=== PATIENT | male | born 1955 | race Caucasian/White ===

== ENCOUNTER 2019-04-25 10:40 | Inpatient (IN) | payer OTHER ==
[~2019-04-25] VITALS: Ht 170.1 cm; Wt 78.5 kg
--- NOTE | ~2019-04-25 | POSTOPNOTE ---
[place], [place] POSTOPERATIVE PROGRESS NOTE NAME: DAKOTA REYES UNIT #: [id number] ROOM: 422 DOCTOR: URSZULA MISTRY MD BIRTHDATE: [birth year] DATE: 04/26/19 GI NOTE PREOPERATIVE DIAGNOSIS: BLOOD IN STOOL POSTOP LOWER GI PROC/FINDINGS: SEGMENTAL COLITIS LOWER GI PROCEDURE/SURGERY: COLONOSCOPY PLUS BIOPSY URSZULA MISTRY MD CM:POSTOPN [id number] URSZULA MISTRY MD 05/03/19 1011 AARON [email or web address]
--- NOTE | ~2019-04-25 | O ---
[place], [place] OPERATIVE NOTE NAME: DAKOTA REYES UNIT #: [id number] ROOM: 422 DOCTOR: FIDELIA PEREZ,URSZULA BIRTHDATE: [birth year] DOS: 04/26/2019 GASTROENDOSCOPIC REPORT INDICATIONS: The patient is a 63-year-old who has presented with chief complaint of blood in the stool, undergoing investigation. PROCEDURE: Today's procedure part of investigation is colonoscopy plus biopsy. PREMEDICATION: Propofol. SCOPE: Olympus forward-viewing colonoscope 10L video. REPORT: After putting the patient in left lateral position and application of lubricant to the scope, scope was introduced. Thereafter, under direct visualization, advanced through the length of colon without difficulty. Base of the cecum explored, appendiceal orifice identified, ileocecal valve was defined. Scope was gradually withdrawn from ascending, transverse, descending colon. At sigmoid colon a segment of the colon approximately 7 cm in width is consistent with colitis. This is circumferential in its diameter. Multiple biopsies obtained. Photographic series obtained. The patient extubated, tolerated the procedure well. IMPRESSION: Segmental colitis of sigmoid colon circumferential in its diameter width of about 7 cm as source of GI bleed and notice of blood in the stool. PLAN AND DISCUSSION: I am going to treat this with sulfasalazine 500 mg 2 tablets b.i.d., folic acid 1 mg daily. We will ask the patient to come back to see us in 2 weeks in the office after his records are available as far as the biopsy is concerned and clinical assessment at such time. URSZULA MISTRY MD CM:OPRECORD:OPERATIVE NOTE 04 26 URSZULA MISTRY MD 05/03/19 0952 interface
[2019-04-25 10:43] VITALS: BP 129/84
[2019-04-25 11:09] LABS: BASO % 0.6 % (0.0-1.0); EOS # 0.3 10*3/uL (0.0-0.4); EOS % 5.1 % (1.0-4.0); HEMATOCRIT 44.2 % (42.0-52.0); HEMOGLOBIN 14.6 g/dl (14.0-18.0); LYMPH # 2.1 10*3/uL (1.3-4.4); LYMPH % 31.8 % (27.0-41.0); MEAN CORPUSCULAR HGB 31.1 pg (27.0-31.0); MEAN PLATELET VOLUME 9.3 fl (9.6-12.3); MONO # 0.7 10*3/uL (0.1-1.0); MONO % 10.8 % (3.0-9.0); NEUT # 3.5 10*3/uL (2.3-7.9); NEUT % 51.6 % (47.0-73.0); PLATELET COUNT AUTOMATED 330 10*3/uL (130-400); RED CELL DISTRI WIDTH 12.5 % (0-14.5); WHITE BLOOD COUNT 6.7 10*3/uL (4.8-10.8)
[2019-04-25 11:25] LABS: ALBUMIN 3.7 gm/dl (3.1-4.5); ALKALINE PHOSPHATASE 81 U/L (45-117); BUN 15 mg/dl (7-24); CHLORIDE 107 mmol/L (98-107); CREATININE 1.04 mg/dL (0.70-1.30); POTASSIUM 4.1 mmol/L (3.5-5.1); SGOT/AST 19 IU/L (3-35); SGPT/ALT 25 U/L (12-78); SODIUM 139 mmol/L (136-145); TOTAL PROTEIN 7.6 gm/dL (6.4-8.2)
[2019-04-25 11:55] VITALS: BP 107/82
--- NOTE | 2019-04-25 12:19 | NUR ---
CCA 63, admitted to , under the services of SARAH Monte DO with a diagnosis of GI BLEED. Chief complaint is GI BLEED. Patient arrived via bed from ER. Monitor applied. Initial assessment completed. Vital signs taken and recorded. SARAH MONTE DO notified of admission to the unit. Orders received. See assessment for past medical history, medications and allergies. Patient and/or family oriented to unit. [address] visitation policy reviewed. Clothing/patient valuable form completed. MANPREET LILLY
[2019-04-25] MEDS ORDERED: ADVAIR 250/501 EA INH (12:22)
[2019-04-25 12:25] VITALS: BP 134/72
--- NOTE | 2019-04-25 12:28 | NUR ---
MEDS REVIEWED AND UPDATED PER POLICY.
--- NOTE | 2019-04-25 12:44 | NUR ---
DR GARRETT CONSULTED. ESTUARDO IN AM.
[2019-04-25 13:01] LABS: BILIRUBIN NEGATIVE (NEGATIVE); BLOOD NEGATIVE (NEGATIVE); CLARITY CLEAR (CLEAR); COLOR YELLOW (YELLOW); GLUCOSE NEGATIVE (NEGATIVE); KETONE NEGATIVE (NEGATIVE); LEUKO ESTERASE NEGATIVE (NEGATIVE); NITRITE NEGATIVE (NEGATIVE); PH 6.5 (5.0-9.0); UROBILINOGEN 0.2 E.U./dl (0.2-1.0)
[2019-04-25 13:09] LABS: RBC 0-2 rbc/hpf (0-2); WBC 0-2 wbc/hpf (0-5)
[2019-04-25 16:00] VITALS: BP 113/73
--- NOTE | 2019-04-25 17:27 | NUR ---
COLO PREP INITIATED AT THIS TIME PER ORDER.
--- NOTE | 2019-04-25 18:59 | NUR ---
NOTIFIED REGARDING PT C/O INDIGESTION. NEW ORDERS TO BE ENTERED PER PHYSICIAN.
--- NOTE | 2019-04-25 19:40 | NUR ---
PATIENT RESTING IN BED WITH AT BEDSIDE. NO NEEDS MADE. DENIES PAIN AT THIS TIME. BED IN LOWEST POSITION, CALL LIGHT IN REACH
[2019-04-25 20:00] VITALS: BP 132/85
--- NOTE | 2019-04-25 23:00 | NUR ---
24 HOUR CHART CHECK COMPLETE.
[2019-04-26] VITALS: BP 129/79
--- NOTE | 2019-04-26 05:52 | NUR ---
FLEETS ENEMA ADMINISTERED IN PREPARATION FOR COLONOSCOPY SCHEDULED FOR THIS MORNING. NO FLECKS NOTED. PT RUNNING CLEAR.
[2019-04-26 06:25] LABS: BASO # 0.1 10*3/uL (0.0-0.1); BASO % 0.5 % (0.0-1.0); EOS # 0.5 10*3/uL (0.0-0.4); EOS % 4.7 % (1.0-4.0); HEMOGLOBIN 15.7 g/dl (14.0-18.0); LYMPH # 2.5 10*3/uL (1.3-4.4); LYMPH % 23.9 % (27.0-41.0); MEAN CORPUSCULAR HGB 31.4 pg (27.0-31.0); MEAN CORPUSCULAR HGB CONC 32.7 g/dl (33.0-37.0); MEAN PLATELET VOLUME 9.4 fl (9.6-12.3); MONO # 0.9 10*3/uL (0.1-1.0); MONO % 9.1 % (3.0-9.0); NEUT # 6.4 10*3/uL (2.3-7.9); NEUT % 61.6 % (47.0-73.0); PLATELET COUNT AUTOMATED 388 10*3/uL (130-400); RED CELL DISTRI WIDTH 12.6 % (0-14.5); WHITE BLOOD COUNT 10.3 10*3/uL (4.8-10.8)
[2019-04-26 07:06] LABS: ALBUMIN 3.7 gm/dl (3.1-4.5); ALKALINE PHOSPHATASE 89 U/L (45-117); BUN 10 mg/dl (7-24); CHLORIDE 105 mmol/L (98-107); CHOLESTEROL 241 mg/dL (<200); CREATININE 1.12 mg/dL (0.70-1.30); HDL CHOLESTEROL 54 mg/dl (40-60); LDL CHOLESTEROL 151 mg/dL (9-159); PHOSPHOROUS 3.5 mg/dL (2.5-4.9); POTASSIUM 3.6 mmol/L (3.5-5.1); SGOT/AST 16 IU/L (3-35); SGPT/ALT 23 U/L (12-78); SODIUM 139 mmol/L (136-145); TOTAL PROTEIN 8.1 gm/dL (6.4-8.2); TRIGLYCERIDES 178 mg/dl (<150); VLDL CHOLESTEROL 36 mg/dL (6-40)
[2019-04-26 07:08] LABS: ACT PARTIAL THROMBO TIME 27.1 SECONDS (20.0-32.1); INTERNATIONAL NORM RATIO 0.9 (2.0-3.5)
--- NOTE | 2019-04-26 08:36 | NUR ---
Patient resting quietly with no c/o discomfort. Respirations easy and regular. Vital signs stable. No overt distress. CRISTINE GOSS R
--- NOTE | 2019-04-26 09:00 | NUR ---
[employer] Wireman in to talk to patient. Patient states lives at home with . There are few steps in the home. Physician: keyana lofton Pharmacy: [facility] Home health services: none Patient's level of ADLs: independent Patient has working utilities: all working DME: none Follow-up physician's appointment after d/c: will be made by hospitalist nurse director upon discharge Does patient want to access PORTAL?: no Discharge plan discussed with patient, present, he lives at home with , he states he is independent in adls and ambulation, works, drives, he denies any home needs at this time. NIRALI BRENNER
[2019-04-26 12:00] VITALS: BP 120/78
[2019-04-26 12:15] VITALS: BP 133/82
[2019-04-26 14:10] VITALS: BP 108/71
[2019-04-26 14:25] VITALS: BP 121/80
[2019-04-26 14:40] VITALS: BP 110/69
--- NOTE | 2019-04-26 14:55 | NUR ---
BACK FROM SURGERY. Patient resting quietly with no c/o discomfort. Respirations easy and regular. Vital signs stable. No overt distress. CRISTINE GOSS R
[2019-04-26] MEDS ORDERED: AZULFIDINE ENT500 MG PO (15:40)
[2019-04-26] MEDS ORDERED: NATURE'S BLEND F1 MG PO (15:40)
--- NOTE | 2019-04-26 16:30 | NUR ---
Discharge instructions reviewed with patient/family. Patient receptive and verbalizes understanding. Follow-up care arranged. Written instructions given to patient/family. MANPREET LILLY.
== END 2019-04-26 16:30 | disposition home or self-care (01) | DRG 392 ==
LOC: ED 10:40 → 4E 11:56 → EDHOLD 11:56 → 4E 12:00
PROVIDERS: Nurse Practitioner Family; Registered Nurse; ADMIT Internal Medicine
PROC: 0DBN8ZX Excision of Sigmoid Colon, Via Natural or Artificial Opening Endoscopic, Diagnostic (ICD-10-PCS; principal; 2019-04-26)
DX: K52.9 Noninfective gastroenteritis and colitis, unspecified (principal); E44.0 Moderate protein-calorie malnutrition; R10.32 Left lower quadrant pain; J44.9 Chronic obstructive pulmonary disease, unspecified; E78.00 Pure hypercholesterolemia, unspecified; Z87.442 Personal history of urinary calculi; Z82.49 Family history of ischemic heart disease and other diseases of the circulatory system; Z79.899 Other long term (current) drug therapy; Z68.27 Body mass index [BMI] 27.0-27.9, adult

== ENCOUNTER → 2022-11-23 | Outpatient (CLI) | payer MEDICARE ==
[~2022-11-23] MED LIST: ADVAIR 250/501 EA INH; AZULFIDINE ENT500 MG PO; CRANBERRY200 MG PO; MULTIVITAMINS1 EAC5 PO; NATURE'S BLEND F1 MG PO; PROAIR HFA8.5 GM INH; VITAMIN B1250 MCG PO
== END | disposition home or self-care (01) ==
LOC: US 01:49
PROVIDERS: ATTEND Family Medicine
DX: Z13.9 Encounter for screening, unspecified (principal)

== ENCOUNTER → 2024-02-28 | Outpatient (CLI) | payer MEDICARE | END | disposition home or self-care (01) | LOC: RESCLI 00:43 | PROVIDERS: ATTEND Internal Medicine | DX: J44.9 Chronic obstructive pulmonary disease, unspecified (principal); E78.5 Hyperlipidemia, unspecified; E56.9 Vitamin deficiency, unspecified; E53.8 Deficiency of other specified B group vitamins; F41.9 Anxiety disorder, unspecified; Z79.899 Other long term (current) drug therapy; Z82.49 Family history of ischemic heart disease and other diseases of the circulatory system; Z98.890 Other specified postprocedural states; Z87.891 Personal history of nicotine dependence ==

== ENCOUNTER → 2024-05-01 | Outpatient (CLI) | payer MEDICARE | END | disposition home or self-care (01) | LOC: US 01:50 | PROVIDERS: ATTEND Nurse Practitioner Primary Care | DX: R05.3 Chronic cough (principal); R59.1 Generalized enlarged lymph nodes; Z98.890 Other specified postprocedural states ==

== ENCOUNTER 2024-06-30 20:21 | Observation (INO) | payer MEDICARE ==
[~2024-06-30] VITALS: Ht 170 cm; Wt 77.0 kg
[2024-06-30 20:21] VITALS: BP 170/88
[2024-06-30 20:59] LABS: BASO % 0.4 % (0.0-1.0); EOS # 0.2 10*3/uL (0.0-0.4); EOS % 1.9 % (1.0-4.0); LYMPH # 2.5 10*3/uL (1.3-4.4); LYMPH % 31.8 % (27.0-41.0); MEAN CELL VOLUME 94.5 fl (80.0-94.0); MEAN CORPUSCULAR HGB 31.3 pg (27.0-31.0); MEAN CORPUSCULAR HGB CONC 33.1 g/dl (33.0-37.0); MEAN PLATELET VOLUME 8.6 fl (9.6-12.3); MONO # 0.8 10*3/uL (0.1-1.0); NEUT # 4.3 10*3/uL (2.3-7.9); NEUT % 55.8 % (47.0-73.0); PLATELET COUNT AUTOMATED 325 10*3/uL (130-400); RED BLOOD COUNT 4.76 10*6/uL (4.50-5.90); RED CELL DISTRI WIDTH 12.6 % (0-14.5); WHITE BLOOD COUNT 7.7 10*3/uL (4.8-10.8)
[2024-06-30 21:20] LABS: POTASSIUM 4.1 mmol/L (3.4-5.1)
[2024-07-01] VITALS (9 sets, daily range): BP systolic 118–156; BP diastolic 68–90
[2024-07-01] MEDS ORDERED: Ondansetron Hydrochloride 4 MG/2 ML VIAL IV PRN (00:55)
[2024-07-01] MEDS ORDERED: MORPHINE Sulfate 2 MG/ML SYR IV PRN (00:55)
[2024-07-01] MEDS ORDERED: ACETAMINOPHEN 325 MG TAB PO PRN (00:55)
[2024-07-01] MEDS ORDERED: Acetaminophen/Hydrocodone 5 MG/325 MG TABLET PO PRN (00:55)
[2024-07-01] MEDS ORDERED: SODIUM CHLORIDE 0.9% 1,000 ML IV ONE (01:00)
[2024-07-01] MEDS ORDERED: Enoxaparin Sodium 40 MG/0.4 ML SYR SC SCH (10:00)
[2024-07-01] MEDS ORDERED: ASPIRIN ENTERIC COATED 81 MG TAB PO SCH (10:00)
[2024-07-01] MEDS ORDERED: Metoprolol Tartrate 25 MG TAB PO SCH (10:00)
[2024-07-01] MEDS ORDERED: FOLIC ACID 1 MG TAB PO SCH (10:00)
[2024-07-01] MEDS ORDERED: FUROSEMIDE 20 MG/2 ML VIAL IV SCH (20:00)
[2024-07-01] MEDS ORDERED: ATORVASTATIN CALCIUM 40 MG TABLET PO SCH (22:00)
[2024-07-01] MEDS ORDERED: ATORVASTATIN CALCIUM 80 MG TAB PO SCH (22:00)
[2024-07-02] VITALS (7 sets, daily range): BP systolic 121–156; BP diastolic 65–90
[2024-07-02 06:35] LABS: ALKALINE PHOSPHATASE 59 U/L (46-116); BUN 16 mg/dl (9-23); CHLORIDE 104 mmol/L (98-107); CHOLESTEROL 188 mg/dL (<200); LDL CHOLESTEROL 107 mg/dL (9-159); POTASSIUM 4.1 mmol/L (3.4-5.1); SGPT/ALT 24 U/L (5-49); TRIGLYCERIDES 97 mg/dl (<150)
[2024-07-02 06:49] LABS: BASO % 0.4 % (0.0-1.0); EOS # 0.1 10*3/uL (0.0-0.4); EOS % 1.7 % (1.0-4.0); HEMATOCRIT 46.9 % (42.0-52.0); LYMPH # 2.1 10*3/uL (1.3-4.4); LYMPH % 24.6 % (27.0-41.0); MEAN CELL VOLUME 93.4 fl (80.0-94.0); MEAN CORPUSCULAR HGB 31.1 pg (27.0-31.0); MEAN CORPUSCULAR HGB CONC 33.3 g/dl (33.0-37.0); MEAN PLATELET VOLUME 8.9 fl (9.6-12.3); MONO # 0.8 10*3/uL (0.1-1.0); MONO % 9.8 % (3.0-9.0); NEUT # 5.3 10*3/uL (2.3-7.9); NEUT % 63.3 % (47.0-73.0); PLATELET COUNT AUTOMATED 328 10*3/uL (130-400); RED BLOOD COUNT 5.02 10*6/uL (4.50-5.90); RED CELL DISTRI WIDTH 12.8 % (0-14.5); WHITE BLOOD COUNT 8.3 10*3/uL (4.8-10.8)
[2024-07-03] VITALS: BP 126/74
[2024-07-03 05:17] LABS: BUN 19 mg/dl (9-23); CHLORIDE 101 mmol/L (98-107); POTASSIUM 3.6 mmol/L (3.4-5.1)
[2024-07-03 06:30] LABS: BASO % 0.3 % (0.0-1.0); EOS # 0.2 10*3/uL (0.0-0.4); LYMPH # 2.4 10*3/uL (1.3-4.4); LYMPH % 27.1 % (27.0-41.0); MEAN CELL VOLUME 94.3 fl (80.0-94.0); MEAN CORPUSCULAR HGB CONC 32.9 g/dl (33.0-37.0); MEAN PLATELET VOLUME 9.2 fl (9.6-12.3); MONO # 0.9 10*3/uL (0.1-1.0); MONO % 10.8 % (3.0-9.0); NEUT # 5.2 10*3/uL (2.3-7.9); NEUT % 59.6 % (47.0-73.0); PLATELET COUNT AUTOMATED 365 10*3/uL (130-400); RED BLOOD COUNT 5.09 10*6/uL (4.50-5.90); RED CELL DISTRI WIDTH 12.6 % (0-14.5); WHITE BLOOD COUNT 8.7 10*3/uL (4.8-10.8)
[2024-07-03] MEDS ORDERED: Regadenoson 0.4 MG/5 ML SYR IV ONE (06:54)
[2024-07-03 08:00] VITALS: BP 137/84
[2024-07-03 12:50] VITALS: BP 156/90
[2024-07-03 16:00] VITALS: BP 140/77
[2024-07-03] MEDS ORDERED: ASPIRIN ADULT L81 M2 PO (16:07)
[2024-07-03] MEDS ORDERED: ROSUVASTATIN CA40 MG PO (16:07)
[2024-07-03] MEDS ORDERED: METOPROLOL SUCC25 M2 PO (16:07)
[2024-07-03] MEDS ORDERED: IMDUR SA30 MG PO (16:07)
[2024-07-03] MEDS ORDERED: FUROSEMIDE20 M1 PO (16:07)
[2024-07-04] MEDS ORDERED: METOPROLOL SUCCINATE XR 25 MG TAB PO SCH (10:00)
[2024-07-04] MEDS ORDERED: ISOSORBIDE MONONITRATE 30 MG TAB PO SCH (10:00)
[2024-07-04] MEDS ORDERED: FUROSEMIDE 20 MG TAB PO SCH (10:00)
== END 2024-07-03 18:10 | disposition home or self-care (01) ==
LOC: ED 20:21 → EDHOLD 07-01 00:50 → 4E 07-01 00:50 → EDHOLD 07-01 00:50 → 4E 07-01 09:36
PROVIDERS: Emergency Medicine; Internal Medicine; Student in an Organized Health Care Education/Training Program; ADMIT Internal Medicine; ATTEND Internal Medicine
DX: R07.89 Other chest pain (principal); I10 Essential (primary) hypertension; N17.0 Acute kidney failure with tubular necrosis; R73.9 Hyperglycemia, unspecified; I45.10 Unspecified right bundle-branch block; J44.9 Chronic obstructive pulmonary disease, unspecified; E78.00 Pure hypercholesterolemia, unspecified; E78.2 Mixed hyperlipidemia; Z79.899 Other long term (current) drug therapy